=== PATIENT | male | born 1995 ===

== ENCOUNTER 2019-09-27 09:56 | Observation (INO) ==
[2019-09-27] MEDS ORDERED: Ondansetron PF 4 MG/2 ML Vial ONE (10:14)
--- NOTE | 2019-09-27 10:48 | CT ---
CT Brain WO Con: 09/27/2019 10:09 AM CLINICAL HISTORY: History of drug use, altered mental status and seizures. IMAGING TECHNIQUE: Multiple CT images were obtained of the brain without IV contrast. COMPARISON: None. FINDINGS: Brain: No acute infarct or hemorrhage is evident. No midline shift. Ventricles: Normal. No hydrocephalus. Skull: Intact. Visualized Paranasal sinuses: Clear. Mastoid air cells:Clear. Extracranial soft tissues:Normal. IMPRESSION: No acute intracranial abnormality.
[2019-09-27 10:53] LABS: ALT (SGPT) 16 U/L (8-55); AST (SGOT) 33 U/L (5-34); Alkaline Phosphatase 109 U/L (40-110); Anion Gap 23 mmol/L (10-20); BUN (Urea Nitrogen) 11 mg/dL (8.9-20.6); Bilirubin, Total 0.5 mg/dL (0.2-1.2); Calc. Creatinine Clearance 0 mL/min (70-130); Calcium 10.1 mg/dL (7.8-10.44); Carbon Dioxide 17 mmol/L (22-29); Chloride 99 mmol/L (98-107); Estimated GFR-MDRD 56; Globulin 3.5 g/dL (2.4-3.5); Glucose 93 mg/dL (70-105); Potassium 3.9 mmol/L (3.5-5.1); Protein, Total 8.5 g/dL (6.0-8.3); Sodium 135 mmol/L (136-145)
[2019-09-27 11:13] LABS: Band 8 % (5-11); Hemoglobin 14.7 g/dL (14.0-18.0); Lymphocytes 7 % (21-51); MDiff Complete? YES; Mean Corpuscular HGB CONC 34.1 g/dL (32.0-36.0); Mean Corpuscular Hemoglobin 33.3 pg (27.0-31.0); Mean Corpuscular Volume 97.9 fL (78.0-98.0); Mean Platelet Volume 8.6 fL (7.4-10.4); Monocytes 4 % (0-10); Neutrophil 81 % (42-75); Platelet Count 217 thou/uL (130-400); RBC Distribution Width 12.3 % (11.5-14.5); Red Blood Cell (RBC) Count 4.42 mill/uL (4.70-6.10); White Blood Cell (WBC) Count 21.2 thou/uL (4.8-10.8)
[2019-09-27 11:58] LABS: Bacteria/HPF 1+ HPF (None Seen); Bilirubin Negative (Negative); Blood, Urine Trace (Negative); Clarity Clear (Clear); Glucose, Urine (Dipstick) Normal (Negative); Leukocyte Negative Leu/uL (Negative); Nitrite Negative (Negative); Protein, Urine (Dipstick) 30 mg/dL (Neg-Trace); RBC/HPF 0-3 HPF (0-3); Squamous Epithelial None Seen HPF (0-3); Urobilinogen Normal mg/dL (Less than 2); WBC/HPF 0-3 HPF (0-3)
[2019-09-27 12:06] LABS: Medtox Reader # READER 1
[2019-09-27 12:07] LABS: Amphetamine Not Detected (NotDetected); Barbiturates Screen Not Detected (NotDetected); Benzodiazepine Screen Not Detected (NotDetected); Cocaine Metabolite Screen Not Detected (NotDetected); Medtox Control Line Valid? VALID (VALID); Methadone Not Detected (NotDetected); Methamphetamine Not Detected (NotDetected); Opiate Screen Not Detected (NotDetected); Oxycodone Screen Not Detected (NotDetected); Phencyclidine (PCP) Not Detected (NotDetected); THC/Cannabinoid Screen Not Detected (NotDetected); Tricyclic Screen Not Detected (NotDetected)
[2019-09-27 12:22] LABS: Acetaminophen Less than 6.0 mcg/mL (10.0-30.0); Alcohol Less than 10 mg/dL (Less than 10); Salicylate Less than 8.0 mg/dL (15.0-30.0)
[2019-09-27] MEDS ORDERED: Vancomycin HCl 1.25 GM in Sodium Chloride 0.9% 250 ML 250 ML IVPB SCH (13:15)
[2019-09-27] MEDS ORDERED: Cefepime 2 GM VIAL ONE (13:27)
[2019-09-27] MEDS ORDERED: Acetaminophen 325 MG TAB PO PRN ×2 (14:21→15:25)
[2019-09-27] MEDS ORDERED: Ondansetron PF 4 MG/2 ML Vial IVP PRN (14:21)
[2019-09-27] MEDS ORDERED: Ondansetron ODT 4 MG TAB SL PRN (14:21)
[2019-09-27 14:49] VITALS: BMI 23.7
[2019-09-27 15:04] LABS: Lactic Acid 0.9 mmol/L (0.5-2.2)
[2019-09-27] MEDS ORDERED: Ondansetron ODT 4 MG TAB PO PRN (15:25)
[2019-09-27] MEDS ORDERED: Guaifenesin DM 100-10/5 ML UDCUP PO PRN (15:25)
[2019-09-27] MEDS ORDERED: Ziprasidone 20 MG VIAL IM PRN (15:25)
[2019-09-27] MEDS ORDERED: Bisacodyl 10 MG SUPP PR PRN (15:25)
[2019-09-27] MEDS ORDERED: Senokot S 8.6-50 MG TAB PO PRN (15:25)
[2019-09-27] MEDS ORDERED: cefTRIAXone\\ROCEPHIN 2 GM in Sodium Chloride 0.9% 100 ML IVPB SCH (16:00)
--- NOTE | 2019-09-27 16:48 | HP ---
REASON FOR ADMISSION: Possible seizure, severe dehydration. HISTORY OF PRESENTING ILLNESS: Please note, the patient is not cooperative and is very belligerent in responding to questions. He states he had a seizure this morning. He does not say who witnessed it and points to the correctional program specialist, who was not at his home in any case. He apparently reported back to group home facility yesterday for Xanax related offense/substance abuse. He was confused at the group home facility and was brought to ER for further evaluation. He has had a CAT scan done which does not show any acute intracranial abnormality. The patient has not had any further seizures here. He has no fever, cough, or expectoration. No complaints of urinary symptoms. He apparently vomited once in the ER. PAST MEDICAL AND SURGICAL HISTORY: The patient states he has had 1 seizure episode 2 years back, but none before or after it. No surgical history. CURRENT MEDICATIONS: None. ALLERGIES: NO KNOWN DRUG ALLERGIES. PERSONAL HISTORY: Admits to using Xanax. Denies all other drugs. Denies smoking or drinking alcohol. He states he has finished high school and is working, but does not reveal what he does. FAMILY HISTORY: Both parents are living and healthy. He lives with his mom, has a sister who is living and is healthy as far as he knows. Code status is full. Power of compliance attorney is his mom. REVIEW OF SYSTEMS: CONSTITUTIONAL: Negative for weight loss or gain, ability to conduct usual activities. SKIN: Negative for rash, itching. EYES: Negative for double vision, pain. ENT/MOUTH: Negative for nose bleeding, neck stiffness, pain, tenderness. CARDIOVASCULAR: Negative for palpitations, dyspnea on exertion, orthopnea. RESPIRATORY: Negative for shortness of breath, wheezing, cough, hemoptysis, fever or night sweats. GASTROINTESTINAL: Negative for poor appetite, abdominal pain, heartburn, nausea, vomiting, constipation, or diarrhea. GENITOURINARY: Negative for urgency, frequency, dysuria, nocturia. MUSCULOSKELETAL: Negative for pain, swelling. NEUROLOGIC/PSYCHIATRIC: Negative for anxiety, depression. ALLERGY/IMMUNOLOGIC: Negative for skin rash, bleeding tendency. PHYSICAL EXAMINATION: GENERAL: The patient is a 24-year-old male who is currently not in any acute distress. VITAL SIGNS: Blood pressure 122/68, pulse 60 per minute, respiratory rate 20 per minute, temperature 98.4 degrees Fahrenheit, saturating 100% on room air. NECK: Supple. No elevated JVD. HEENT: Eyes; extraocular muscles intact. Pupils are reacting to light. Oral cavity; mucous membranes are dry. No exudates or congestion. CARDIOVASCULAR: S1 and S2 heard, regular rhythm. RESPIRATORY: Air entry 2+ bilateral. No rales or rhonchi. ABDOMEN: Soft. Bowel sounds heard. No tenderness, rigidity, or guarding. EXTREMITIES: No peripheral edema or calf tenderness. VASCULAR: Peripheral pulses 2+ bilateral. No ischemic ulcerations or gangrene. CENTRAL NERVOUS SYSTEM: No gross focal deficits noted. The patient is oriented well. PSYCHIATRIC: No obvious hallucinations or delusions, but the patient is very uncooperative at present. LABORATORY DATA: CT brain without contrast done shows no acute intracranial abnormality. Chest x-ray shows no acute cardiopulmonary abnormality. Urine drug screen is negative even for benzodiazepines. Plasma alcohol less than 10. UA shows 10 mg/dL of ketones. BUN 11, creatinine 1.5, serum bicarb is 17. Lactic acid was 7.2 on arrival, a repeat is 0.9. CK level 675. Albumin is 5. Prolactin is 12.7. White count of 21, H and H 14 and 43, platelet count is 217 with 81% neutrophils, 8% bands. CLINICAL IMPRESSION AND PLAN: The patient will be under observation on stroke unit for an episode of seizure which was not witnessed. Mr. Naik has had a prior seizure 2 years back. He is very uncooperative with history or physical exam. There are no signs of meningeal irritation. In view of elevated white count which is likely due to seizure and severe dehydration/margination, blood and urine cultures have been obtained. He is empirically placed on ceftriaxone and vancomycin. He will be gently hydrated with normal saline at 100 mL per hour. No seizure medications will be given for him. His seizure likely is due to street drug related, which is not showing up on the urine drug screen as of now. Job ID: [id number]
[2019-09-27] MEDS: Vancomycin 1 GM in Premix Bag 1 BAG IVPB SCH (17:40)
[2019-09-27] MEDS: Sodium Chloride 0.9% 1,000 ML IV SCH (21:37)
[2019-09-27] MEDS: Famotidine 20 MG TAB PO SCH (21:37)
[2019-09-28 04:52] LABS: #Lymphocytes 1.8 thou/uL (1.20-3.40); #Monocytes 1.2 thou/uL (0.11-0.59); #Neutrophils 8.3 thou/uL (1.40-6.50); %Basophils 0.3 % (0.0-1.0); %Eosinophils 0.2 % (0.0-10.0); %Lymphocytes 15.9 % (21.0-51.0); %Monocytes 10.7 % (0.0-10.0); Hemoglobin 12.6 g/dL (14.0-18.0); Mean Corpuscular HGB CONC 33.2 g/dL (32.0-36.0); Mean Corpuscular Hemoglobin 32.8 pg (27.0-31.0); Mean Corpuscular Volume 98.9 fL (78.0-98.0); Mean Platelet Volume 8.5 fL (7.4-10.4); Platelet Count 183 thou/uL (130-400); RBC Distribution Width 12.6 % (11.5-14.5); Red Blood Cell (RBC) Count 3.85 mill/uL (4.70-6.10); White Blood Cell (WBC) Count 11.4 thou/uL (4.8-10.8)
[2019-09-28] MEDS: Vancomycin 1 GM in Premix Bag 1 BAG IVPB SCH (04:59)
[2019-09-28 05:22] LABS: Anion Gap 13 mmol/L (10-20); BUN (Urea Nitrogen) 8 mg/dL (8.9-20.6); Calc. Creatinine Clearance 132 mL/min (70-130); Calcium 8.7 mg/dL (7.8-10.44); Carbon Dioxide 21 mmol/L (22-29); Chloride 107 mmol/L (98-107); Estimated GFR-MDRD Greater than 90; Glucose 75 mg/dL (70-105); Potassium 3.1 mmol/L (3.5-5.1); Sodium 138 mmol/L (136-145)
[2019-09-28] MEDS ORDERED: Potassium Chloride 20 MEQ TAB PO SCH (07:00)
[2019-09-28 08:16] VITALS: BP 126/60; TEMP 98.4
[2019-09-28] MEDS: Famotidine 20 MG TAB PO SCH (08:48)
[2019-09-28] MEDS ORDERED: Enoxaparin Sodium 40 MG/0.4 ML SYRINGE SC SCH (09:00)
[2019-09-28] MEDS: Sodium Chloride 0.9% 1,000 ML IV SCH (10:35)
--- NOTE | 2019-09-28 12:53 | CON ---
DATE OF CONSULTATION: 09/28/2019 CONSULTING PHYSICIAN: Hospitalist Service. IMPRESSION: Probable withdrawal seizure secondary to Xanax use. PLAN: The patient can be discharged back to the half-way. HISTORY OF PRESENT ILLNESS: Mr. Scanlon is a 24-year-old man, who reportedly had a witnessed generalized tonic-clonic seizure. He hit his head on the floor. He had a CT scan of the brain done, which was normal. His lab work was otherwise unremarkable. His tox screen was negative. Reportedly, he has taken Xanax prior to his entry into the half-way. He reports a history of a seizure a couple of years ago, apparently was under similar circumstances. He has never been on anticonvulsant. EKG showed a sinus rhythm. His workup is otherwise negative. He complains of some soreness to his head, but otherwise feels fine and has been able to eat and drink. PAST MEDICAL HISTORY: Otherwise negative. ALLERGIES: NONE REPORTED. SOCIAL HISTORY: No other illicit drug use reported. FAMILY HISTORY: Unremarkable. REVIEW OF SYSTEMS: Ten-system review of systems is otherwise negative. PHYSICAL EXAMINATION: GENERAL: He is a healthy-appearing young man, lying in bed, in no distress. VITAL SIGNS: Vital signs have been stable. He is afebrile. HEENT: Pupils equal and reactive. Conjunctivae clear. Oropharynx clear. NECK: Supple. EXTREMITIES: No cyanosis, clubbing or edema. NEUROLOGIC: He is alert and appropriate. His speech is fluent and clear. His exam is nonfocal. He has no abnormal movements. SUMMARY: This is a young man, who had a witnessed generalized seizure, likely secondary to Xanax withdrawal. I would not start an anticonvulsant at this point. He appears to be stable for discharge. Job ID: [id number]
--- NOTE | 2019-09-28 18:26 | DIS ---
DATE OF ADMISSION: 09/27/2019 DATE OF DISCHARGE: 09/28/2019 DISCHARGE DISPOSITION: Alf. PRIMARY DISCHARGE DIAGNOSES: One episode of seizure, likely from Xanax withdrawal, severe dehydration with margination and elevated white count, acute encephalopathy on admission secondary to Xanax/seizure, which has resolved. PROCEDURES DONE DURING HOSPITALIZATION: The patient has had chest x-ray done which did not reveal any acute abnormality. CT brain, no acute intracranial abnormality. Blood cultures x2 preliminary, no growth. Urine culture, no growth. Had a white count of 21 with discharge numbers of 11, H and H of 12 and 38, platelet count 183, MCV is 98 with 73% neutrophils. BUN 8, creatinine 0.9, serum bicarb 21. CK level 675. Prolactin 12.7. Albumin is 5. Urine drug screen was negative. Plasma alcohol less than 10. UA showed 1+ bacteria, but negative nitrite and leukocyte esterase. DISCHARGE MEDICATION: Levaquin 500 mg p.o. daily for another 5 days. BRIEF COURSE DURING HOSPITALIZATION: Patient [facility] was [facility] for confusion and agitation. He apparently had a seizure. He also vomited once in the emergency room on arrival. The patient was severely dehydrated with elevated white count. There are no signs of sepsis. The patient admitted to using Xanax for a long time. Likely, he had one episode of withdrawal seizure from Xanax. He was evaluated by Dr. Cardenas for neurology as well. He has not had any further seizure episodes during his brief stay here. This morning, he is fully awake, alert, and oriented. He will be shortly discharged back to [facility] facility. Please note I have seen and examined the patient on the day of discharge. Job ID: [id number]
--- NOTE | 2019-09-29 08:03 | RAD ---
Chest AP view INDICATION: History of sepsis and altered mental status COMPARISON: None FINDINGS: Lungs: The lungs are clear Cardiac silhouette: The cardiomediastinal silhouette appears within normal limits. Pulmonary vasculature: Normal Pleural spaces: No pleural effusion or pneumothorax is demonstrated. Upper abdomen: No abnormality seen. Osseous structures: No acute osseous abnormality. Additional findings: None. IMPRESSION: No acute cardiopulmonary abnormality.
--- NOTE | 2019-10-01 15:22 | EKG ---
Test Reason : SEIZURE Blood Pressure : / mmHG Vent. Rate : 075 BPM Atrial Rate : 075 BPM P-R Int : 218 ms QRS Dur : 084 ms QT Int : 382 ms P-R-T Axes : 050 041 038 degrees QTc Int : 426 ms Sinus rhythm with sinus arrhythmia with 1st degree A-V block Voltage criteria for left ventricular hypertrophy No STEMI Abnormal ECG Confirmed by MINI SÁNCHEZ M.D. ([id number]), editor magazine JUSTIN SINGH ([id number]) on 10/01/2019 3:22:20 PM Referred By: Confirmed By:MINI SÁNCHEZ M.D.
== END 2019-09-28 10:30 ==
LOC: ERS 09:56 → EDBD 09:56 → 2SE 14:32 → EEVIPCON 14:32
PROVIDERS: ADMIT Internal Medicine; ATTEND Internal Medicine
DX: R56.9 Unspecified convulsions (principal); E86.0 Dehydration; D72.829 Elevated white blood cell count, unspecified; G93.40 Encephalopathy, unspecified; F19.10 Other psychoactive substance abuse, uncomplicated
CPT/HCPCS: 36415; 70450; 71045; 80048; 80053; 80306; 80307; 81003; 81015; 82550; 83605; 84146; 85025; 87040; 87086; 93005; 94760; 96361; 96374; J0692; J1650; J2405; J3370; J7050